=== PATIENT | male | born 1985 | race Caucasian/White ===

== ENCOUNTER 2017-06-07 09:39 | Day surgery (SDC) | payer OTHER ==
[2017-06-07] VITALS (13 sets, daily range): BP systolic 116–145; BP diastolic 72–87; PULSE 50–70; RESP 11–22; Ht 177.8 cm; Wt 97.1 kg
[~2017-06-07] VITALS: Ht 177.8 cm; Wt 97.1 kg
[~2017-06-07 09:39] MED LIST: ATROPINE 1 MG/10 ML SYRINGE IV PRN; CEFAZOLIN 1 GM INJ ONE; DEXAMETHASONE 4 MG/ML 1 ML INJ ONE; DIPHENHYDRAMINE 50 MG INJ IV PRN; EPHEDrine SULFATE 50 MG/5 ML SYG IV PRN; FENTAnyl 50 MCG/ML VIAL IV PRN; FENTAnyl 50 MCG/ML VIAL ONE; GLYCOPYRROLATE 0.4 MG INJ ONE; HYDROmorphONE (0.2 MG/ML) 10ML SYG IV PRN; LABETALOL HCL 20MG INJ IV PRN; LIDOCAINE 2% (SDV) 5 ML INJ ONE; MEPERIDINE 25 MG INJ IV PRN; MIDAZOLAM 1 MG/ML 2 ML INJ IV PRN; MIDAZOLAM 1 MG/ML 2 ML INJ ONE; NEOSTIGMINE 3 MG/3 ML SYRINGE ONE; ONDANSETRON 4 MG INJ IV PRN; ONDANSETRON 4 MG INJ ONE; OXYCODONE/ACETAMINOPHEN (5/325) TAB PO PRN; PROPOFOL 20 ML ONE; ROCURONIUM 50 MG INJ ONE; hydrALAzine 20 MG INJ IV PRN; morphine (1 MG/ML) 10ML SYRINGE IV PRN
[2017-06-07] MEDS ORDERED: SUCCINYLCHOLINE CHLORIDE 100 MG/5 ML SYG IV ONE (10:21)
[2017-06-07] MEDS ORDERED: POLYMYXIN/BACITRACIN 1L IRRIG ONE (10:51)
[2017-06-07] MEDS ORDERED: POVIDONE IODINE 10% 28.4 GM OINT ONE (10:51)
--- NOTE | 2017-06-07 11:31 | HPN ---
Date/Time of Note Date/Time of Note DATE: 06/07/17 TIME: 11:31 Interval H&P Admission Note Pt. seen H&P reviewed: No system changes CLAIR SNYDER MD Jun 07, 2017 11:31
[2017-06-07] MEDS ORDERED: ROPIVACAINE 0.5 % 30 ML VIAL ONE (13:15)
[2017-06-07] MEDS ORDERED: ROPIVACAINE 0.5 % 30 ML VIAL INJ ONE (13:40)
[2017-06-07] MEDS ORDERED: SOD CHLORIDE 0.9% 1,000 ML IV SCH (13:48)
--- NOTE | 2017-06-07 13:48 | OPPN ---
Date/Time of Note Date/Time of Note DATE: 06/07/17 TIME: 13:46 Operative Report Preoperative Diagnosis R Achilles tendon rupture Postoperative Diagnosis same Operation/Procedure Performed Open R Achilles tendon repair Surgeon see signature line bilingual sales assistant MD Fauzia Anesthesia: general Estimated blood loss: 0 - 10 ml's Transfusion Required none Specimen none Grafts/Implants none Complications none CLAIR SNYDER MD Jun 07, 2017 13:48
--- NOTE | 2017-06-07 13:48 | OPPN ---
Date/Time of Note Date/Time of Note DATE: 06/07/17 TIME: 13:46 Operative Report Preoperative Diagnosis R Achilles tendon rupture Postoperative Diagnosis same Operation/Procedure Performed Open R Achilles tendon repair Surgeon see signature line assistant infant toddler teacher MD Fauzia Anesthesia: general Estimated blood loss: 0 - 10 ml's Transfusion Required none Specimen none Grafts/Implants none Complications none CLAIR SNYDER MD Jun 07, 2017 13:48
[2017-06-07] MEDS ORDERED: ONDANSETRON 4 MG INJ IV PRN (14:00)
[2017-06-07] MEDS ORDERED: morphine 2 MG INJ IV PRN (14:00)
[2017-06-07] MEDS ORDERED: OXYCODONE/ACETAMINOPHEN (5/325) TAB PO PRN ×2 (14:00)
--- NOTE | 2017-06-08 03:31 | OPR ---
DATE OF OPERATION: 06/07/2017 PREOPERATIVE DIAGNOSIS: Tear of the right Achilles tendon at the musculotendinous junction. POSTOPERATIVE DIAGNOSES: 1. Tear of the right Achilles tendon at the musculotendinous junction. 2. A 3 to 5 cm retraction of the Achilles tear. OPERATION PERFORMED: 1. Repair of right Achilles tendon musculotendinous junction. 2. Local augmentation repair. 3. Release of deep posterior compartment of the calf underneath the Achilles repair. 4. Short-leg cast. SURGEON: Clair Vegas MD CARETAKER GROUNDS: Forrest Cage ANESTHESIA: General with popliteal block. TOURNIQUET TIME: 48 minutes. DESCRIPTION OF PROCEDURE: The patient taken to the operating room and placed in supine position satisfactory. Popliteal block was given. Satisfactory general anesthesia was administered. The right calf previously had been marked out. Both legs were prepped and draped in the usual manner. The left leg was draped out of the field. The right leg was approached. Timeout was done. We verified the right leg was the operative leg. At the center of the musculotendinous tear, we made an incision medially to the Achilles itself. Dissection carried down to subcutaneous tissue, down to the paratenon. 3-0 undyed Vicryl was used on the skin with clamps to retract. We previously used no retraction except for the suture retraction to avoid injury to the skin. The paratenon was opened and split proximally and distally. The proximal portion of the tendon had retracted somewhat but was freed up with an elevator and special clamps and freed up proximally enough that there was good tissue and tendon to repair proximally. Distally it was freed up as well. There was good tendon to repair distally. Wounds irrigated with antibiotic solution. All debris was removed. Minimal debridement of the Achilles tendon was done. A #2 FiberWire was weaved through the distal portion of the Achilles tendon with a Vernon suture gaining good bites on the tissue. A #2 FiberWire was weaved proximally. The tissue was a little friable. We moved up our proximally slightly our insertion point of the start of our repair proximally because we wanted to set the tension appropriately. After both sutures had been placed, both knees were bent to 90 degrees. We examined the plantarflexion in the normal left foot. It appeared to match the right foot when the sutures were tied. The left foot was then draped out of the field again. The right foot was irrigated with antibiotic solution multiple times. With the foot in plantarflexion, the sutures were tied on both sides with good square knots. Excellent apposition was noted of the Achilles tendon, 3-0 PDS was used to sew over the remaining ends of the Achilles and tried to do local augmentation of some of the frayed material. Once this was done medially and laterally, the Achilles looked very good. Guevara test was negative. Wounds were irrigated with antibiotic solution. The paratenon was closed with a running 3-0 undyed Vicryl noncutting suture. Tourniquet was released, bleeders were coagulated, wounds irrigated with antibiotic solution. It should be noted that prior to tying the Achilles tendon the deep posterior fascia was released proximally and distally to facilitate repair of the paratenon. As mentioned, the paratenon was closed and then the 3-0 undyed Vicryl was used to close the subcutaneous tissue and the skin was closed with 4-0 black nylon, 0.5% ropivacaine was used to block the saphenous nerve medially. Compression dressing was applied as well as short-leg cast in 5 to 10 degrees of plantar flexion. End of procedure sponge and needle count was correct. Patient tolerated procedure well and the cast was split in the recovery room. Dictated By: CLAIR BENEDICT/JOSÉ MIGUEL Conf#: [id number] DID#: [id number] SUSANNA
--- NOTE | 2017-06-14 21:52 | OPR ---
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 The library serials assistant helped with retraction of the wound, mobilization of the tendon, and the library serials assistant also tied the tendon on one side while I tied the other to maintain the length. Without a skilled library serials assistant this could not have been done; therefore, should be compensated appropriately. Dictated By: CLAIR BENEDICT/JOSÉ MIGUEL Conf#: [id number] DID#: [id number] MTDD
--- NOTE | 2017-06-14 21:52 | OPR ---
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 The promotional advertising assistant helped with retraction of the wound, mobilization of the tendon, and the promotional advertising assistant also tied the tendon on one side while I tied the other to maintain the length. Without a skilled promotional advertising assistant this could not have been done; therefore, should be compensated appropriately. Dictated By: CLAIR BENEDICT/JOSÉ MIGUEL Conf#: [id number] DID#: [id number] MTDD
== END 2017-06-07 16:31 | disposition home or self-care (01) ==
LOC: SDS 09:39
PROVIDERS: ATTEND Orthopaedic Surgery
DX: S86.011A Strain of right Achilles tendon, initial encounter (principal); X58.XXXA Exposure to other specified factors, initial encounter; Y92.89 Other specified places as the place of occurrence of the external cause
CPT/HCPCS: 27650; J0690; J1100; J2250; J2405; J2795; J3010; J2710